=== PATIENT | female | born 1990 | race Two or more races ===

== ENCOUNTER 2023-03-13 20:11 | Emergency (ER) | payer SELFPAY ==
[~2023-03-13] VITALS: Ht 165.1 cm; Wt 95.3 kg
[2023-03-13 22:08] VITALS: BP 125/80; TEMP 98.2; O2SAT 99
== END 2023-03-13 22:05 | disposition home or self-care (01) ==
LOC: ER 20:18
DX: S39.81XA Other specified injuries of abdomen, initial encounter (principal); V89.2XXA Person injured in unspecified motor-vehicle accident, traffic, initial encounter; Y93.89 Activity, other specified; Y92.89 Other specified places as the place of occurrence of the external cause; Y99.8 Other external cause status